=== PATIENT | female | born 1970 | race Caucasian/White ===

== ENCOUNTER 2016-08-19 21:18 | Emergency (ER) | payer OTHER ==
[~2016-08-19] VITALS: Ht 172.7 cm; Wt 80.1 kg
[~2016-08-19 21:18] MED LIST: ADVAIR 250/501 DISK IH; ADVAIR HFA120 INHAL1 IH; ALBUTEROL SULF8.5 GM IH; ALDACTONE50 MG PO; ALPRAZOLAM2 MG PO; Aldactone PO; Aspirin PO; Atarax,Vistaril PO; CARISOPRODOL350 MG PO; CATAPRES0.1 MG PO; CIPRO500 MG PO; DILAUDID4 MG PO; FERROUS SULFAT325 MG PO; FLEXERIL5 MG PO; FLONASE16 G1 BOTH NARES; FLUOXETINE HCL20 MG PO; FUROSEMIDE40 MG PO; GABAPENTIN300 MG PO; GOODY POWDER PO; GRALISE300 MG PO; HYCODAN SYRUP480 ML PO; HYDROMORPHONE HC8 MG PO; KEFLEX500 MG PO; KLONOPIN1 MG PO; LASIX20 MG PO; LASIX40 MG PO; LEVAQUIN500 MG PO; LEVAQUIN750 MG PO; LIDODERM 5% P1 PATCH TD; LISINOPRIL10 MG PO; LOPRESSOR25 MG PO; Lasix PO; METOPROLOL SUCC25 MG PO; METOPROLOL TART25 MG PO; METOPROLOL TART50 MG PO; MORPHINE SULFA100 M2 PO; MS CONTIN,ORAMO60 MG PO; MS CONTIN100 MG PO; MS Contin,Oramorph S PO; OMEPRAZOLE20 MG PO; OXYBUTYNIN CHLOR5 MG PO; PERCOCET 10/1 TABLET PO; PERCOCET 5/31 TABLET PO; PHENERGAN; PREDNISONE10 MG PO; PREDNISONE20 MG PO; PRILOSEC40 MG PO; PRINIVIL10 MG PO; PROMETHAZINE HC25 M1; PROMETHAZINE HC25 M1 PO; PROMETHAZINE HC50 M1 PO; PROZAC20 MG PO; PROZAC40 MG PO; PROzac PO; PYRIDIUM100 MG PO; Percocet 5/325,Endoc PO; Phenergan PO; SEROQUEL100 MG PO; SEROQUEL300 MG PO; SOMA250 MG PO; SOMA350 MG PO; SPIRONOLACTONE50 MG PO; SYMBICORT60 INHALA1 IH; SYMBICORT60 INHALAT IH; Soma PO; TESSALON PERLE100 MG PO; TOPAMAX100 MG PO; TOPAMAX25 MG PO; TOPAMAX50 MG PO; TOPROL XL100 MG PO; TRAZODONE HCL50 MG PO; Theragran PO; Topamax PO; VENTOLIN HFA18 GM IH; XANAX XR2 MG PO; XOPENEX HF200 INHALA IH; ZANTAC150 MG PO; ZOFRAN4 MG PO; Zestril,Prinivil PO
[2016-08-19 21:50] LABS: EOSINOPHIL (%) 2.1 % (0-5); EOSINOPHIL COUNT 0.2 K/uL (0-0.3); HEMATOCRIT 40.2 % (36.0-46.0); IMMATURE GRANULOCYTE (%) 0.3 % (0.0-0.7); IMMATURE GRANULOCYTE COUNT 0.3 K/uL; LYMPHOCYTE COUNT 4.2 K/uL (1.0-2.8); MCH 30.4 PG (29.0-34.0); MCHC 35.1 G/DL (30.0-36.0); MCV 86.6 FL (83-99); MEAN PLAT.VOLUME 9.6 uM^3 (9.5-12.4); MONOCYTE (%) 7.1 % (3-12); MONOCYTE COUNT 0.7 K/uL (0-0.8); NEUTROPHIL (%) 45.8 % (45-76); NEUTROPHIL COUNT 4.3 K/uL (1.8-6.4); PLATELET COUNT 303 K/uL (156-360); RBC DIS.WIDTH-CV 13.4 % (11.8-14.6); RBC DIS.WIDTH-SD 41.6 % (39-53); RED BLOOD COUNT 4.64 M/uL (3.80-5.20); WHITE BLOOD COUNT 9.4 K/uL (4.1-10.2)
[2016-08-19 21:59] LABS: CHLORIDE 105 mEq/L (99-109); POTASSIUM 3.7 mEq/L (3.7-5.4); SODIUM 137 mEq/L (136-147)
[2016-08-19 22:01] LABS: GLUCOSE 84 mg/dL (70-99)
[2016-08-19 22:02] LABS: ANION GAP 14 MEQ/L (2-14)
[2016-08-19 22:03] LABS: TOTAL BILIRUBIN 0.5 mg/dL (0.0-1.0)
[2016-08-19 22:04] LABS: SERUM ETHYL ALCOHOL < 10 mg/dL
[2016-08-19 22:05] LABS: ALKALINE PHOSPHATASE 131 IU/L (3-129); GFR ESTIMATE (CALCULATED) 40 mL/min/
[2016-08-19 22:07] LABS: UREA NITROGEN (BUN) 28 mg/dL (9-23)
[2016-08-19 22:08] LABS: SALICYLATE < 5.0 MG/DL (15-30)
[2016-08-19 22:14] LABS: QUANTITATIVE HCG < 4.0 MIU/ML
[2016-08-19 22:52] LABS: ADD MIUA? YES; BILIRUBIN SMALL; BLOOD NEGATIVE; COLOR YELLOW ((YELLOW)); GLUCOSE (STRIP) NEGATIVE; KETONES NEGATIVE; LEUKOCYTES TRACE; NITRITE NEGATIVE; PH, URINE 5.5 (5-8); PROTEIN (STRIP) TRACE; SPECIFIC GRAVITY 1.025 (1.000-1.030); UROBILINOGEN 0.2 MG/DL (0.2-1.0)
[2016-08-19 23:02] LABS: AMPHETAMINE NEGATIVE (500 ng/mL); BARBITURATES NEGATIVE (200 ng/mL); BENZODIAZEPINES PRESUMPTIVE POSITIVE (150 ng/mL); COCAINE NEGATIVE (150 ng/mL); INTERNAL CONTROLS VALID? YES; METHADONE NEGATIVE (200 ng/mL); METHAMPHETAMINE NEGATIVE (500 ng/mL); OPIATES (MORPHINE) PRESUMPTIVE POSITIVE (100 ng/mL); OXYCODONE NEGATIVE (100 ng/mL); PHENCYCLIDINE NEGATIVE (25 ng/mL); PROPOXYPHENE NEGATIVE (300 ng/mL); THC CANNABINOIDS NEGATIVE (50 ng/mL); TRICYCLIC ANTIDEPRESSANTS PRESUMPTIVE POSITIVE (300 ng/mL)
[2016-08-19 23:03] LABS: CREATINE KINASE 51 IU/L (1-294)
[2016-08-19 23:03] LABS: ADD MEDTOX COMMENT Y
[2016-08-19 23:08] LABS: BACTERIA 1+; CASTS PRESENT /LPF; CRYSTALS NONE SEEN; EPITHELIAL CELLS RARE; HYALINE CASTS 0-5 /LPF; MUCUS NONE SEEN; RED BLOOD CELLS 0-5 /HPF (0-5); UCUL ADDED? NO; WHITE BLOOD CELLS 0-5 /HPF (0-5)
[2016-08-20 00:22] LABS: BENZODIAZEPINES, URINE SCREEN POSITIVE (200 ng/mL)
[2016-08-20 00:35] LABS: TROP-I INTERPRETATION NEGATIVE; TROPONIN-I < 0.01 ng/mL (0.0-0.30)
[2016-08-20 01:32] VITALS: BP 97/59
== END 2016-08-20 01:57 | disposition left against medical advice (07) ==
LOC: EME 21:18
PROVIDERS: Emergency Medicine
DX: I95.9 Hypotension, unspecified (principal); F11.20 Opioid dependence, uncomplicated; E86.0 Dehydration; G89.29 Other chronic pain; Z95.810 Presence of automatic (implantable) cardiac defibrillator; F17.200 Nicotine dependence, unspecified, uncomplicated
CPT/HCPCS: 80053; 81003; 82550; 84484; 84702; 84999; 85025; 93005; 99281; 99284; G0480; J2310; J2405; J7030

== ENCOUNTER 2016-10-19 14:00 | Emergency (ER) | payer OTHER ==
[~2016-10-19] VITALS: Ht 172.7 cm; Wt 82.3 kg
[2016-10-19 14:14] VITALS: BP 122/75
== END 2016-10-19 14:35 | disposition left against medical advice (07) ==
LOC: EME 14:00
DX: R22.41 Localized swelling, mass and lump, right lower limb (principal); L53.9 Erythematous condition, unspecified; Z53.21 Procedure and treatment not carried out due to patient leaving prior to being seen by health care provider
CPT/HCPCS: 99281; 99282

== ENCOUNTER 2016-11-09 02:03 | Emergency (ER) | payer OTHER ==
[~2016-11-09] VITALS: Ht 172.7 cm; Wt 79.0 kg
[2016-11-09] MEDS ORDERED: PERCOCET 5/31 TABLET PO (03:08)
[2016-11-09 03:29] VITALS: BP 110/77
== END 2016-11-09 03:31 | disposition home or self-care (01) ==
LOC: EME 02:03
PROC: 2W3QX1Z Immobilization of Right Lower Leg using Splint (ICD-10-PCS; principal; 2016-11-09)
DX: Z47.89 Encounter for other orthopedic aftercare (principal); S82.891A Other fracture of right lower leg, initial encounter for closed fracture
CPT/HCPCS: 73610; 73630; 99281; 99283

== ENCOUNTER 2016-11-19 06:34 | Emergency (ER) | payer OTHER ==
[~2016-11-19] VITALS: Ht 172.7 cm; Wt 83.6 kg
[2016-11-19 07:22] LABS: ADD MIUA? YES; BILIRUBIN NEGATIVE; BLOOD NEGATIVE; COLOR YELLOW ((YELLOW)); GLUCOSE (STRIP) NEGATIVE; KETONES NEGATIVE; LEUKOCYTES TRACE; NITRITE NEGATIVE; PROTEIN (STRIP) 30; SPECIFIC GRAVITY 1.026 (1.000-1.030); UROBILINOGEN 0.2 MG/DL (0.2-1.0)
[2016-11-19 07:36] LABS: HEMATOCRIT 41.7 % (36.0-46.0); MCH 30.5 PG (29.0-34.0); MCHC 33.3 G/DL (30.0-36.0); MCV 91.4 FL (83-99); MEAN PLAT.VOLUME 9.5 uM^3 (9.5-12.4); PLATELET COUNT 190 K/uL (156-360); RBC DIS.WIDTH-CV 12.4 % (11.8-14.6); RBC DIS.WIDTH-SD 41.8 % (39-53); RED BLOOD COUNT 4.56 M/uL (3.80-5.20); WHITE BLOOD COUNT 5.3 K/uL (4.1-10.2)
[2016-11-19 07:42] LABS: BACTERIA RARE /HPF; EPITHELIAL CELLS 2+ /HPF; HYALINE CASTS 0-5 /LPF; MUCUS TRACE /LPF; RED BLOOD CELLS 0-5 /HPF (0-5); UCUL ADDED? NO; UNCLASSIFIED CASTS 0-5 /LPF
[2016-11-19 08:07] LABS: ANION GAP 5 MEQ/L (2-14); CHLORIDE 100 MEQ/L (99-109); GFR ESTIMATE (CALCULATED) > 59 mL/min/; GLUCOSE 110 mg/dL (70-99); POTASSIUM 3.5 MEQ/L (3.7-5.4); SAMPLE HEMOLYSIS CHECK 0; SAMPLE ICTERIC CHECK 0; SAMPLE LIPEMIA CHECK 0; SODIUM 139 MEQ/L (136-147); UREA NITROGEN (BUN) 17 mg/dL (9-23)
[2016-11-19] MEDS ORDERED: CIPRO500 MG PO (08:28)
[2016-11-19 08:44] VITALS: BP 120/83
== END 2016-11-19 08:44 | disposition home or self-care (01) ==
LOC: EME 06:34
PROVIDERS: Emergency Medicine
DX: N39.0 Urinary tract infection, site not specified (principal); F17.200 Nicotine dependence, unspecified, uncomplicated; Z88.6 Allergy status to analgesic agent
CPT/HCPCS: 80048; 81003; 83880; 85027; 99281; 99284

== ENCOUNTER 2016-11-23 13:49 | Emergency (ER) | payer OTHER ==
[~2016-11-23] VITALS: Ht 172.7 cm; Wt 82.2 kg
[2016-11-23 14:08] VITALS: BP 100/63
== END 2016-11-23 18:03 | disposition left against medical advice (07) ==
LOC: EME 13:49
DX: M25.471 Effusion, right ankle (principal); Z53.21 Procedure and treatment not carried out due to patient leaving prior to being seen by health care provider
CPT/HCPCS: 99281; 99282

== ENCOUNTER 2016-12-26 20:20 | Emergency (ER) | payer OTHER ==
[~2016-12-26] VITALS: Ht 170.2 cm; Wt 80.7 kg
[2016-12-26] MEDS ORDERED: PERCOCET 5/31 TABLET PO (22:51)
[2016-12-26 23:02] VITALS: BP 101/67
== END 2016-12-26 23:03 | disposition home or self-care (01) ==
LOC: EME 20:20
DX: S93.401A Sprain of unspecified ligament of right ankle, initial encounter (principal); W18.30XA Fall on same level, unspecified, initial encounter; F32.9 Major depressive disorder, single episode, unspecified; F17.200 Nicotine dependence, unspecified, uncomplicated; Z88.6 Allergy status to analgesic agent
CPT/HCPCS: 73610; 73630; 99281; 99283

== ENCOUNTER 2017-02-16 04:31 | Emergency (ER) | payer OTHER ==
[~2017-02-16] VITALS: Ht 172.7 cm; Wt 88.1 kg
[2017-02-16 05:33] LABS: CHLORIDE 106 mEq/L (99-109); POTASSIUM 3.7 mEq/L (3.7-5.4); SODIUM 140 mEq/L (136-147)
[2017-02-16 05:35] LABS: GLUCOSE 104 mg/dL (70-99)
[2017-02-16 05:36] LABS: ANION GAP 11 MEQ/L (2-14)
[2017-02-16 05:39] LABS: GFR ESTIMATE (CALCULATED) > 59 mL/min/
[2017-02-16 05:40] LABS: UREA NITROGEN (BUN) 7 mg/dL (9-23)
[2017-02-16 05:41] LABS: EOSINOPHIL (%) 3.9 % (0-5); EOSINOPHIL COUNT 0.2 K/uL (0-0.3); HEMATOCRIT 37.5 % (36.0-46.0); IMMATURE GRANULOCYTE (%) 0.7 % (0.0-0.7); INSTRUMENT ABS NEUTROPHIL CT 2.3 K/uL; LYMPHOCYTE COUNT 1.7 K/uL (1.0-2.8); MCH 31.2 PG (29.0-34.0); MCHC 33.3 G/DL (30.0-36.0); MCV 93.5 FL (83-99); MONOCYTE (%) 7.5 % (3-12); MONOCYTE COUNT 0.3 K/uL (0-0.8); NEUTROPHIL (%) 51.3 % (45-76); NEUTROPHIL COUNT 2.3 K/uL (1.8-6.4); PLATELET COUNT 185 K/uL (156-360); RBC DIS.WIDTH-CV 12.4 % (11.8-14.6); RED BLOOD COUNT 4.01 M/uL (3.80-5.20); WHITE BLOOD COUNT 4.6 K/uL (4.1-10.2)
[2017-02-16] MEDS ORDERED: CLEOCIN300 MG PO (05:41)
[2017-02-16 05:53] VITALS: BP 102/77
== END 2017-02-16 06:26 | disposition home or self-care (01) ==
LOC: EME → EDBD 04:31 → EME 04:31
PROVIDERS: Emergency Medicine
DX: L03.115 Cellulitis of right lower limb (principal); F17.200 Nicotine dependence, unspecified, uncomplicated
CPT/HCPCS: 80048; 83605; 85025; 87040; 99281; 99285; J1885; J2405; J7030

== ENCOUNTER 2017-06-10 19:16 | Emergency (ER) | payer OTHER ==
[~2017-06-10] VITALS: Ht 172.7 cm; Wt 90.0 kg
[~2017-06-10 19:16] MED LIST changes: +CLEOCIN300 MG PO
[2017-06-10 19:21] VITALS: BP 100/79
== END 2017-06-10 22:37 | disposition home or self-care (01) ==
LOC: EME 19:16
PROC: 2W3MX1Z Immobilization of Left Lower Extremity using Splint (ICD-10-PCS; principal; 2017-06-10)
DX: S82.832A Other fracture of upper and lower end of left fibula, initial encounter for closed fracture (principal); W19.XXXA Unspecified fall, initial encounter; F17.210 Nicotine dependence, cigarettes, uncomplicated; Z88.6 Allergy status to analgesic agent
CPT/HCPCS: 73610; 99281; 99284

== ENCOUNTER 2017-07-08 17:45 | Emergency (ER) | payer OTHER ==
[~2017-07-08] VITALS: Ht 172.7 cm; Wt 90.0 kg
[2017-07-08 17:51] VITALS: BP 82/50
[2017-07-08 20:22] LABS: EOSINOPHIL COUNT 0.1 K/uL (0-0.3); HEMATOCRIT 44.8 % (36.0-46.0); IMMATURE GRANULOCYTE (%) 0.5 % (0.0-0.7); LYMPHOCYTE COUNT 2.1 K/uL (1.0-2.8); MCV 93.7 FL (83-99); MONOCYTE (%) 5.2 % (3-12); MONOCYTE COUNT 0.5 K/uL (0-0.8); NEUTROPHIL (%) 69.3 % (45-76); PLATELET COUNT 192 K/uL (156-360); RBC DIS.WIDTH-CV 13.7 % (11.8-14.6); RBC DIS.WIDTH-SD 47.4 % (39-53); RED BLOOD COUNT 4.78 M/uL (3.80-5.20); WHITE BLOOD COUNT 8.7 K/uL (4.1-10.2)
[2017-07-08 20:34] LABS: CHLORIDE 102 mEq/L (99-109); SODIUM 134 mEq/L (136-147)
[2017-07-08 20:36] LABS: GLUCOSE 106 mg/dL (70-99)
[2017-07-08 20:37] LABS: ANION GAP 11 MEQ/L (2-14)
[2017-07-08 20:38] LABS: TOTAL BILIRUBIN 0.3 mg/dL (0.0-1.0)
[2017-07-08 20:39] LABS: ALKALINE PHOSPHATASE 141 IU/L (3-129)
[2017-07-08 20:40] LABS: GFR ESTIMATE (CALCULATED) 35 mL/min/
[2017-07-08 20:41] LABS: UREA NITROGEN (BUN) 22 mg/dL (9-23)
== END 2017-07-08 20:41 | disposition left against medical advice (07) ==
LOC: EME 17:45
PROVIDERS: Physician Assistant
PROC: 2W3CX1Z Immobilization of Right Lower Arm using Splint (ICD-10-PCS; principal; 2017-07-08)
DX: S52.591A Other fractures of lower end of right radius, initial encounter for closed fracture (principal); W01.0XXA Fall on same level from slipping, tripping and stumbling without subsequent striking against object, initial encounter; I95.9 Hypotension, unspecified; F17.200 Nicotine dependence, unspecified, uncomplicated; Z53.20 Procedure and treatment not carried out because of patient's decision for unspecified reasons
CPT/HCPCS: 73110; 80053; 83605; 85025; 99281

== ENCOUNTER 2017-08-05 09:51 | Emergency (ER) | payer OTHER ==
[~2017-08-05] VITALS: Ht 172.7 cm; Wt 88.0 kg
[2017-08-05] MEDS ORDERED: SOMA350 MG PO (10:16)
[2017-08-05] MEDS ORDERED: TOPIRAMATE200 MG PO (10:17)
[2017-08-05] MEDS ORDERED: TOPIRAMATE100 MG PO (10:17)
[2017-08-05 10:45] LABS: HEMATOCRIT 39.3 % (36.0-46.0); HEMOGLOBIN 13.1 G/DL (11.9-15.5); MCH 31.3 PG (29.0-34.0); MCHC 33.3 G/DL (30.0-36.0); PLATELET COUNT 178 K/uL (156-360); RBC DIS.WIDTH-CV 13.1 % (11.8-14.6); RBC DIS.WIDTH-SD 45.1 % (39-53); RED BLOOD COUNT 4.18 M/uL (3.80-5.20); WHITE BLOOD COUNT 4.3 K/uL (4.1-10.2)
[2017-08-05 10:51] LABS: CHLORIDE 106 mEq/L (99-109); INTER. NORMALIZED RATIO 1.1; POTASSIUM 3.7 mEq/L (3.7-5.4); SODIUM 137 mEq/L (136-147)
[2017-08-05 10:52] LABS: GLUCOSE 85 mg/dL (70-99)
[2017-08-05 10:53] LABS: PTT 35.1 SEC (25-37)
[2017-08-05 10:56] LABS: CREATININE 0.8 mg/dL (0.6-1.3); GFR ESTIMATE (CALCULATED) > 59 mL/min/
[2017-08-05 10:57] LABS: UREA NITROGEN (BUN) 11 mg/dL (9-23)
[2017-08-05 17:47] VITALS: BP 119/73
== END 2017-08-05 17:48 | disposition home or self-care (01) ==
LOC: EME 09:51
PROVIDERS: Nurse Practitioner Family
DX: I73.9 Peripheral vascular disease, unspecified (principal); F17.200 Nicotine dependence, unspecified, uncomplicated; G89.29 Other chronic pain; M79.604 Pain in right leg; M79.671 Pain in right foot; R00.0 Tachycardia, unspecified; I10 Essential (primary) hypertension; Z95.810 Presence of automatic (implantable) cardiac defibrillator
CPT/HCPCS: 73706; 80048; 85027; 85610; 85730; 93926; 93971; 99281; 99285; J2270

== ENCOUNTER 2017-08-15 14:30 | Emergency (ER) | payer OTHER ==
[~2017-08-15] VITALS: Ht 172.7 cm; Wt 84.9 kg
[~2017-08-15 14:30] MED LIST changes: +TOPIRAMATE100 MG PO; +TOPIRAMATE200 MG PO
[2017-08-15 16:34] VITALS: BP 110/69
== END 2017-08-15 16:35 | disposition home or self-care (01) ==
LOC: EME 14:30
DX: G89.29 Other chronic pain (principal); M79.605 Pain in left leg; M79.604 Pain in right leg; I42.9 Cardiomyopathy, unspecified; J44.9 Chronic obstructive pulmonary disease, unspecified; F17.200 Nicotine dependence, unspecified, uncomplicated; F32.9 Major depressive disorder, single episode, unspecified; Z95.810 Presence of automatic (implantable) cardiac defibrillator; Z88.6 Allergy status to analgesic agent; Z88.1 Allergy status to other antibiotic agents; Z88.8 Allergy status to other drugs, medicaments and biological substances

== ENCOUNTER 2018-03-15 14:55 | Emergency (ER) | payer OTHER ==
[~2018-03-15] VITALS: Ht 172.7 cm; Wt 85.9 kg
[2018-03-15 15:34] LABS: HEMATOCRIT 38.9 % (36.0-46.0); HEMOGLOBIN 13.7 G/DL (11.9-15.5); MCH 32.5 PG (29.0-34.0); MCHC 35.2 G/DL (30.0-36.0); MCV 92.2 FL (83-99); PLATELET COUNT 187 K/uL (156-360); RBC DIS.WIDTH-SD 43.8 % (39-53); RED BLOOD COUNT 4.22 M/uL (3.80-5.20); WHITE BLOOD COUNT 9.2 K/uL (4.1-10.2)
[2018-03-15 15:42] LABS: ALBUMIN 3.8 g/dL (3.2-4.8); CHLORIDE 103 mEq/L (99-109); POTASSIUM 3.4 mEq/L (3.7-5.4); SODIUM 130 mEq/L (136-147)
[2018-03-15 15:45] LABS: GLUCOSE 95 mg/dL (70-99); TOTAL PROTEIN 6.1 g/dL (6.4-8.3)
[2018-03-15 15:46] LABS: TOTAL BILIRUBIN 0.4 mg/dL (0.0-1.0)
[2018-03-15 15:48] LABS: ALKALINE PHOSPHATASE 87 IU/L (3-129); GFR ESTIMATE (CALCULATED) 18 mL/min/; SERUM ETHYL ALCOHOL < 10 mg/dL
[2018-03-15 15:49] LABS: UREA NITROGEN (BUN) 18 mg/dL (9-23)
[2018-03-15 15:50] LABS: AST (GOT) 12 IU/L (2-34)
[2018-03-15 15:51] LABS: ALT (GPT) 14 IU/L (3-49)
[2018-03-15 15:52] LABS: LIPASE 47 U/L (1.0-51.0)
[2018-03-15 15:54] LABS: TROP-I INTERPRETATION NEGATIVE; TROPONIN-I < 0.01 ng/mL (0.0-0.30)
[2018-03-15 17:50] LABS: PHENCYCLIDINE NEGATIVE (25 ng/mL); THC CANNABINOIDS PRESUMPTIVE POSITIVE (50 ng/mL)
[2018-03-15 17:51] LABS: AMPHETAMINE NEGATIVE (500 ng/mL); BARBITURATES NEGATIVE (200 ng/mL); BENZODIAZEPINES NEGATIVE (150 ng/mL); BUPRENORPHINE NEGATIVE (10 ng/mL); COCAINE NEGATIVE (150 ng/mL); METHADONE NEGATIVE (200 ng/mL); METHAMPHETAMINE NEGATIVE (500 ng/mL); OPIATES (MORPHINE) PRESUMPTIVE POSITIVE (100 ng/mL); OXYCODONE PRESUMPTIVE POSITIVE (100 ng/mL); PROPOXYPHENE NEGATIVE (300 ng/mL); TRICYCLIC ANTIDEPRESSANTS NEGATIVE (300 ng/mL)
[2018-03-15 18:21] VITALS: BP 102/59
== END 2018-03-15 18:25 | disposition left against medical advice (07) ==
LOC: EME 14:55
PROVIDERS: Emergency Medicine
DX: N17.9 Acute kidney failure, unspecified (principal); K52.9 Noninfective gastroenteritis and colitis, unspecified; E86.0 Dehydration; F32.9 Major depressive disorder, single episode, unspecified; J43.9 Emphysema, unspecified; F17.200 Nicotine dependence, unspecified, uncomplicated; Z95.810 Presence of automatic (implantable) cardiac defibrillator
CPT/HCPCS: 80048; 80053; 83605; 83690; 84484; 84999; 85027; 87040; 93005; 99281; 99285; G0480; J2405; J7030